=== PATIENT | male | born 1980 | race Hispanic/Latino ===

== ENCOUNTER 2018-05-12 17:47 | Inpatient (IN) | payer OTHER ==
[2018-05-12] MEDS ORDERED: Sodium Chloride 0.9% 1,000 ML IV STA (18:12)
--- NOTE | 2018-05-12 18:14 | ED PDOC ---
HPI: Chest Pain Time Seen by Provider: 05/12/18 18:02 Chief Complaint (Nursing): Chest Pain Chief Complaint (Provider): Chest Pain, SOB History Per: Patient History/Exam Limitations: no limitations Onset/Duration Of Symptoms: Days (x2) Current Symptoms Are (Timing): Still Present Additional Complaint(s): 38 year old male with pmhx of factor five leiden disorder presents to the ED for evaluation of chest pain extending from his left ribs to left shoulder associated with shortness of breath upon deep inhalation and occasional light headedness for the past two days. Patient reports he took some Aleve initially, but it only provided transient relief. He notes he wsa also taking his prescribed Otezla for his psoriasis / psoriatic arthritis, but stopped because he feared the symptoms may have been side effects. Additionally, patient states six months ago he injured his left knee and subsequently re-injured it yesterday after falling on it. He notes waking up thi s morning and with his chest pain symptoms, was also having some pain and swelling to the knee, prompting his ED visit. Otherwise, patient denies nausea, vomiting, diarrhea, fever, chills, numbness, and weakness. PMD: Dave Khan Past Medical History Reviewed: Historical Data, Nursing Documentation, Vital Signs Vital Signs: Last Vital Signs Temp 99 F 05/12/18 18:11 Pulse 93 H 05/12/18 18:11 Resp 19 05/12/18 18:11 BP 121/77 05/12/18 18:11 Pulse Ox 98 05/12/18 18:11 - Medical History PMH: Arthritis (psoriatic) Other PMH: psoriasis; factor five leiden disorder - Surgical History Surgical History: No Surg Hx - Family History Family History: States: Other Other Family History: factor five leiden (father) - Social History Current smoker - smoking cessation education provided: Yes (e-cig; quit regular cigarettes x8 mo. ago ) - Allergies Allergies/Adverse Reactions: Allergies Allergy/AdvReac Type Severity Reaction Status Date / Time No Known Allergies Allergy Verified 05/12/18 17:53 Review of Systems ROS Statement: Except As Marked, All Systems Reviewed And Found Negative Constitutional: Negative for: Fever, Chills Cardiovascular: Positive for: Chest Pain (left sided ranging from ribs to shoulder), Light Headedness (occasionally) Respiratory: Positive for: Shortness of Breath (with deep inhalation) Gastrointestinal: Negative for: Nausea, Vomiting, Diarrhea Musculoskeletal: Positive for: Leg Pain (left knee with swelling) Neurological: Negative for: Weakness, Numbness Physical Exam - Reviewed Nursing Documentation Reviewed: Yes Vital Signs Reviewed: Yes - Physical Exam Appears: Positive for: Uncomfortable Head Exam: Positive for: ATRAUMATIC, NORMOCEPHALIC Skin: Positive for: Normal Color, Warm Eye Exam: Positive for: Normal appearance ENT: Positive for: Normal ENT Inspection Neck: Positive for: Normal, Painless ROM, Supple Cardiovascular/Chest: Positive for: Regular Rate, Rhythm, Chest Non Tender (to palpation) Respiratory: Positive for: Normal Breath Sounds. Negative for: Accessory Muscle Use, Respiratory Distress Pulses-Dorsalis Pedis (L): 2+ Pulses-Dorsalis Pedis (R): 2+ Gastrointestinal/Abdominal: Positive for: Normal Exam, Soft. Negative for: Tenderness Extremity: Positive for: Normal ROM (full ROM actively bilateral lower extremities), Swelling (mild to left anterior knee without ecchymosis or erythema; no swelling, ecchymosis, or erythema noted to right knee) Neurologic/Psych: Positive for: Alert, Oriented (x3). Negative for: Motor/Sensory Deficits - Laboratory Results Result Diagrams: 05/12/18 18:44 05/12/18 18:44 Lab Results: no acute - ECG ECG: Positive for: Interpreted By Me, Viewed By Me ECG Rhythm: Positive for: Sinus Rhythm, Nonspecific Changes O2 Sat by Pulse Oximetry: 98 (RA) Pulse Ox Interpretation: Normal - Radiology X-Ray: Interpreted by Me, Viewed By Me X-Ray Interpretation: No Acute Disease - CT Scan/US ct Other Rad Studies (CT/US): Read By Radiologist Other Rad Interpretation: pe - Progress ED Course And Treament: 1939: Stable. Pending ct. 2046: Stable. AAOx3. Pain controlled. Hematology paged and hospitalist. 2049: Spoke with Dr. Alvarenga. Will admit ICU. 2123: Spoke with Dr. Alvarenga about thrombolytics vs. lovenox. Considering no elevation in trop or probnp, not saddle embolis, vitals maintained well, and in no distress, will do lovenox. Stable. AAOx3. Pain free. 2129: Spoke with Dr. Marlon Luke. Agrees with current care. Lovenox and no thro mbolytics. CT: IMPRESSION: 1. Bilateral PE as described above; more extensive on the left. 2. The estimated RV/LV ratio equals 1.2. This indicates significant right ventricular strain. 3. Small focal patchy consolidation in the inferior left lingual, pneumonia versus pulmonary infarct. 4. A small left pleural effusion is present - Critical Care Total Time (In Min): 30 Documented Critical Care: Time excludes all time spent performint seperately billable procedures Medical Decision Making Medical Decision Making: Time: 1811 Initial Impression: chest pain Initial Plan: --CT angio chest --EKG --BNP --CMP --Trop I --CBC with differential --PT / PTT --CXR portable --Left knee XR --Normal saline IV Scribe Attestation: Documented by Elizabeth Childress, acting as a scribe for Tyrell Hernandes MD. Provider Scribe Attestation: All medical record entries made by the Scribe were at my direction and personally dictated by me. I have reviewed the chart and agree that the record accurately reflects my personal performance of the history, physical exam, medical decision making, and the department course for this patient. I have also personally directed, reviewed, and agree with the discharge instructions and disposition. Disposition - Clinical Impression Clinical Impression: Chest pain, Pulmonary embolism - Patient ED Disposition Is Patient to be Admitted: Yes Counseled Patient/Family Regarding: Studies Performed, Diagnosis - Disposition Disposition Time: 20:31 Condition: FAIR - Pt Status Changed To: Hospital Disposition Of: Inpatient - Admit Certification Admit to Inpatient:: After my assessment, the patient will require hospitalization for at least two midnights. This is because of the severity of symptoms shown, intensity of services needed, and/or the medical risk in this patient being treated as an outpatient. - POA Present On Arrival: Deep Vein Thrombosis / PE
[2018-05-12 18:48] LABS: BASO # 0.1 K/uL (0.0-0.2); BASO % 0.8 % (0.0-2.0); EOS # 0.1 K/uL (0.0-0.7); EOS % 1.6 % (0.0-4.0); HEMOGLOBIN 13.3 g/dL (12.0-18.0); LYMPH # 2.2 K/uL (1.0-4.3); LYMPH % 28.5 % (20.0-40.0); MEAN CELL VOLUME 80.4 fl (80.0-94.0); MEAN CORPUSCULAR HEMOGLOBIN 27.6 pg (27.0-31.0); MEAN CORPUSCULAR HGB CONC 34.3 g/dL (33.0-37.0); MEAN PLATELET VOLUME 6.9 fl (7.2-11.7); MONO # 0.6 K/uL (0.0-0.8); MONO % 7.3 % (0.0-10.0); NEUT # 4.8 K/uL (1.8-7.0); NEUT % 61.8 % (50.0-75.0); NRBC % 0.1 % (0.0-0.0); RBC 4.81 Mil/uL (4.40-5.90); RED CELL DISTRIBUTION WIDTH 13.2 % (11.5-14.5); WHITE BLOOD COUNT 7.7 K/uL (4.8-10.8)
[2018-05-12 18:56] LABS: INR 1.1; PROTHROMBIN TIME 12.4 Seconds (9.8-13.1)
[2018-05-12 18:58] LABS: ALB/GLOB RATIO 1.1 (1.0-2.1); ALBUMIN 3.9 g/dL (3.5-5.0); ALT/SGPT 21 U/L (21-72); AST/SGOT 21 U/L (17-59); BLOOD UREA NITROGEN 18 mg/dl (9-20); CALCIUM 8.9 mg/dL (8.4-10.2); GFR NON-AFRICAN AMERICAN > 60
[2018-05-12 18:59] LABS: PARTIAL THROMBOPLASTIN TIME 33.4 Seconds (25.6-37.1)
[2018-05-12] MEDS ORDERED: Iodixanol 320 MG/ML 100 ML BOTTLE IV ONE (19:03)
[2018-05-12] MEDS ORDERED: Sodium Chloride 0.9% 50 ML IV ONE (19:03)
[2018-05-12 19:10] LABS: B-TYPE NATRIURETIC PEPTIDE 94.3 pg/ml (0-450)
[2018-05-12] MEDS: Enoxaparin 120 mg Syringe SC SCH (22:06)
--- NOTE | 2018-05-12 22:12 | CP.PCM.HP ---
<Fany Sheridan - Last Filed: 05/12/18 22:59> History of Present Illness - History of Present Illness History of Present Illness: Pt is a 38 y/o male with hx of Factor V Leiden disorder, Psoriatic Arthritis, Chronic knee and back pain presents to ED with complaints of chest pain and shortness of breath since Sunday. States he was advised by Telemedicine to report to ED today prompting his visit. Describes chest pain as intermittent, sharp, worsened with deep inspiration, localized to sternum with radiation to his left arm, and unrelieved with Aleve. He denies any cough, fever/chills, LE swelling (but + Knee effusion, chronic), calf pain, palpitations, or syncopal episodes. States he has been ambulating daily but can be sedentary occasional for his job. ROS: Left knee pain from injury 6 months ago associated with swelling, BL 2nd digit toe pain PMD: Dr. Erin Acosta [employer] Ax Consultant: Dr. Houston PMHX : Factor V Leiden mutation (partially positive, pt states 2/4 testing was abnormal?) Psoriatic Arthritis, Chronic knee and back pain, Denies hx of clots PSurgHx: Appendectomy NKDA PFamHx: Father with hypercoagulability, possible Factor V Leiden deficiency Social: Former cigarette smoker, quit 9 months ago, currently smokes E- cigarrettes (w/ nicotine), rarely drinks alcohol, denies illicit drug use. Present on Admission - Present on Admission Any Indicators Present on Admission: No Past Patient History - Past Social History Smoking Status: Never Smoked - INTEGUMENTARY Hx Psoriasis: Yes - MUSCULOSKELETAL/RHEUMATOLOGICAL Hx Arthritis: Yes (psoriatic) - PSYCHIATRIC Hx Substance Use: No - SURGICAL HISTORY Hx Surgeries: No - ANESTHESIA Hx Anesthesia: No Meds Allergies/Adverse Reactions: Allergies Allergy/AdvReac Type Severity Reaction Status Date / Time No Known Allergies Allergy Verified 05/12/18 17:53 Physical Exam - Constitutional Appears: No Acute Distress - Head Exam Head Exam: NORMAL INSPECTION - Eye Exam Eye Exam: Normal appearance - ENT Exam ENT Exam: Mucous Membranes Moist - Neck Exam Neck exam: Positive for: Full Rom - Respiratory Exam Respiratory Exam: Clear to Auscultation Bilateral. absent: Accessory Muscle Use, Rales, Rhonchi, Wheezes - Cardiovascular Exam Cardiovascular Exam: REGULAR RHYTHM, +S1, +S2 - GI/Abdominal Exam GI & Abdominal Exam: Normal Bowel Sounds, Soft. absent: Tenderness - Extremities Exam Extremities exam: Positive for: joint swelling (Left Knee, no redness, warmth or tenderness), normal capillary refill, pedal pulses present. Negative for: calf tenderness, pedal edema, tenderness - Neurological Exam Neurological exam: Alert, Oriented x3 - Psychiatric Exam Psychiatric exam: Normal Affect - Skin Additional comments: Scattered erythematous patches with silvery scales over LE BL and a few in UE. No ulcers/wounds Results - Vital Signs Recent Vital Signs: Last Vital Signs Temp 98.6 F 05/12/18 21:53 Pulse 84 05/12/18 21:53 Resp 18 05/12/18 21:53 BP 126/79 05/12/18 21:53 Pulse Ox 98 05/12/18 21:31 - Labs Result Diagrams: 05/12/18 18:44 05/12/18 18:44 Labs: Laboratory Results - last 24 hr 05/12/18 05/12/18 05/12/18 18:44 18:44 18:44 WBC 7.7 RBC 4.81 Hgb 13.3 Hct 38.7 MCV 80.4 MCH 27.6 MCHC 34.3 RDW 13.2 Plt Count 254 MPV 6.9 L Neut % (Auto) 61.8 Lymph % (Auto) 28.5 [place] % (Auto) 7.3 Eos % (Auto) 1.6 Baso % (Auto) 0.8 Neut # (Auto) 4.8 Lymph # (Auto) 2.2 [place] # (Auto) 0.6 Eos # (Auto) 0.1 Baso # (Auto) 0.1 PT 12.4 INR 1.1 APTT 33.4 Sodium 140 Potassium 3.8 Chloride 101 Carbon Dioxide 28 Anion Gap 15 BUN 18 Creatinine 1.2 Est GFR ( Amer) > 60 Est GFR (Non-Af Amer) > 60 Random Glucose 99 Calcium 8.9 Total Bilirubin 0.4 AST 21 ALT 21 Alkaline Phosphatase 93 Troponin I < 0.0120 NT-Pro-B Natriuret Pep 94.3 Total Protein 7.3 Albumin 3.9 Globulin 3.4 Albumin/Globulin Ratio 1.1 Assessment & Plan - Assessment and Plan (Free Text) Assessment: Pt is a 38 y/o male with hx of Factor V Leiden disorder, Psoriatic Arthritis, C hronic knee and back pain presents to ED with complaints of chest pain and SOB, found to have Bilateral PE on Chest CT Angio. ED Course: CBC wnl CMP wnl Troponin x1 negative EKG: Q waves in lead III, no ST changes, no R axis deviation Chest Xray: Mild wedge shaped consolidation RL lung border, small left pleural effusion on my read (final report pending) CT Chest angio: Bilateral PE, more extensive on Left. RV/LV ratio 1.2, indicating Right ventricular strain, Small patchy consolidation in left lingual- pnu vs pulmonary infarct, small left pleural effusion #Bilateral PE - Hemodynamically stable, O2 sat 99 on rm air - Likely as sequele of underlying hypercoagulability (Favor V leiden mutation) - Therapeutic Lovenox, 1mg/kg, 120mg SC q12 - PTT 6 hours post Lovenox bolus - Tylenol prn for pain - Hematology Consult, Dr. Luke, called in ED. - BL LE Venous duplex - Cardiac monitoring in ICU overnight #Left knee swelling -Chronic 6months, post trauma vs rheumatoid disease -Low suspicion for septic knee as it is not red, warm, or tender -F/U Xray final read #Psoriatic Arthritis -Pt states he stopped taking his medication Sunday since he felt bad -Will continue home medication #GI ppx -Pepcid 20mg po BID #Diet -Regular Full Code Discussed case with Dr. Alvarenga <Sergey Alvarenga - Last Filed: 05/13/18 07:14> Results - Vital Signs Recent Vital Signs: Last Vital Signs Temp 98.9 F 05/13/18 04:00 Pulse 60 05/13/18 06:00 Resp 19 05/13/18 06:00 BP 108/78 05/13/18 06:00 Pulse Ox 98 05/13/18 06:00 - Labs Result Diagrams: 05/12/18 18:44 05/12/18 18:44 Labs: Laboratory Results - last 24 hr 05/12/18 05/12/18 05/12/18 18:44 18:44 18:44 WBC 7.7 RBC 4.81 Hgb 13.3 Hct 38.7 MCV 80.4 MCH 27.6 MCHC 34.3 RDW 13.2 Plt Count 254 MPV 6.9 L Neut % (Auto) 61.8 Lymph % (Auto) 28.5 [place] % (Auto) 7.3 Eos % (Auto) 1.6 Baso % (Auto) 0.8 Neut # (Auto) 4.8 Lymph # (Auto) 2.2 [place] # (Auto) 0.6 Eos # (Auto) 0.1 Baso # (Auto) 0.1 PT 12.4 INR 1.1 APTT 33.4 Sodium 140 Potassium 3.8 Chloride 101 Carbon Dioxide 28 Anion Gap 15 BUN 18 Creatinine 1.2 Est GFR ( Amer) > 60 Est GFR (Non-Af Amer) > 60 Random Glucose 99 Calcium 8.9 Total Bilirubin 0.4 AST 21 ALT 21 Alkaline Phosphatase 93 Troponin I < 0.0120 NT-Pro-B Natriuret Pep 94.3 Total Protein 7.3 Albumin 3.9 Globulin 3.4 Albumin/Globulin Ratio 1.1 05/13/18 04:40 WBC RBC Hgb Hct MCV MCH MCHC RDW Plt Count MPV Neut % (Auto) Lymph % (Auto) [place] % (Auto) Eos % (Auto) Baso % (Auto) Neut # (Auto) Lymph # (Auto) [place] # (Auto) Eos # (Auto) Baso # (Auto) PT INR APTT 40.0 H Sodium Potassium Chloride Carbon Dioxide Anion Gap BUN Creatinine Est GFR ( Amer) Est GFR (Non-Af Amer) Random Glucose Calcium Total Bilirubin AST ALT Alkaline Phosphatase Troponin I NT-Pro-B Natriuret Pep Total Protein Albumin Globulin Albumin/Globulin Ratio Attending/Attestation - Attestation I have personally seen and examined this patient.: Yes I have fully participated in the care of the patient.: Yes I have reviewed all pertinent clinical information: Yes Notes (Text): 05/13/18 06:54 I saw, examined and discussed this patient with Dr Sheridan. I agree with the assessment and plan outlined. this 38 years old male with left side chest pain and hx of factor V Leiden in his father and himself. CTA Chest showed Bilateral Pulmonary Embolism with small patchy consolidation in the inferior left lingula pulmonary infarct. Treat with Lovenox and consult Hematology. Follow ECHO Julian MARTEL
[2018-05-12] MEDS ORDERED: Oxycodone/Acetaminophen 5/325 mg Tab PO PRN (23:12)
[2018-05-13] MEDS ORDERED: Pneumococcal 23-Valent Vaccine IM ONE (07:32)
[2018-05-13] MEDS: Enoxaparin 120 mg Syringe SC SCH ×2 (08:30→21:19)
[2018-05-13] MEDS ORDERED: Pantoprazole 40 mg Susp UD NG SCH (09:00)
--- NOTE | 2018-05-13 09:13 | CARD ---
APPROVED REPORT Date of service: 05/12/2018 EKG Measurement Heart [id number] <Conclusion> Normal sinus rhythm Normal ECG
--- NOTE | 2018-05-13 10:59 | RAD ---
Date of service: 05/12/2018 PROCEDURE: Left Knee Radiographs. HISTORY: Pain. COMPARISON: None. FINDINGS: BONES: No acute fracture or destructive bony lesion identified. JOINTS: Normal. No osteoarthritis. JOINT EFFUSION: Mild suprapatellar bursa effusion noted. OTHER FINDINGS: None. IMPRESSION: No acute fracture or dislocation left knee. Mild suprapatellar bursa effusion noted.
--- NOTE | 2018-05-13 11:00 | RAD ---
Date of service: 05/12/2018 HISTORY: dyspnea COMPARISON: No prior. FINDINGS: LUNGS: No active pulmonary disease. PLEURA: No significant pleural effusion identified, no pneumothorax apparent. CARDIOVASCULAR: No aortic atherosclerotic calcification present. Normal cardiac size. No pulmonary vascular congestion. OSSEOUS STRUCTURES: No significant abnormalities. VISUALIZED UPPER ABDOMEN: Normal. OTHER FINDINGS: None. IMPRESSION: No active disease.
--- NOTE | 2018-05-13 11:55 | CT ---
Date of service: 05/12/2018 PROCEDURE: CT Chest with contrast (Pulmonary Angiogram) HISTORY: chest pain COMPARISON: None available. TECHNIQUE: Axial computed tomography images were obtained of the chest in the pulmonary arterial phase of enhancement. Coronal and sagittal reformatted images were created and reviewed. Intravenous contrast dose: 95 cc Visipaque 320. Mean Hounsfield value in the main pulmonary artery: 204.52 Radiation dose: Total exam DLP = 376.09 mGy-cm. This CT exam was performed using one or more of the following dose reduction techniques: Automated exposure control, adjustment of the mA and/or kV according to patient size, and/or use of iterative reconstruction technique. FINDINGS: PULMONARY ARTERIES: Thrombus in the lingular and lower lobe branches of the left lung. Additional thrombus noted in multiple segments of the right lower lobe. No evidence of more proximal or saddle emboli identified. AORTA: No acute findings. No thoracic aortic aneurysm. No atherosclerotic calcification or mural plaque present. LUNGS: Subsegmental infiltrate in the lingula. Based on distribution pulmonary emboli, this may represent small area infarction. PLEURAL SPACES: Trace right pleural effusion. HEART: Straightening/flattening of the interventricular septum may reflect a component of right ventricular strain. No cardiomegaly. No significant pericardial effusion. LYMPH NODES: No lymphadenopathy. BONES, CHEST WALL: Unremarkable. No fracture or destructive lesion OTHER FINDINGS: Unremarkable. IMPRESSION: Bilateral lower lobe and lingular pulmonary emboli. Thrombus burden greater in the left lung than right. Flattening of the interventricular septum may reflect a component of right heart strain. Concordant results (preliminary interpretation) provided by Earnest. Procedure Completed: 19:31. Preliminary Report: Interpreted and electronically signed: 20:30. Final Interpretation: 11:52. May 13, 2018
--- NOTE | 2018-05-13 12:41 | CP.PCM.PN ---
Subjective - Date & Time of Evaluation Date of Evaluation: 05/13/18 Time of Evaluation: 12:27 - Subjective Subjective: This is a 38 yrs old male who was dmitted with left sided chest pain,with radiation to the left arm. He was brought to the ER where a cardiac event was ruled out. His father has had thromboembolic events and was found to have factor V leiden gene mutation. The patient was also found to be positive for the same. He had a CT chest done, and was found to have bilateral PE, one in the right lung upper lobe and one in the left lung lower lobe. He has had this off and on for the past year, but did not go to a hospital or a doctor. 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 The venous doppler in the lower extremities and echocardiogram are done but not resulted yet. Pt was a smoker until 9 months ago, but now uses electronic cigarettes. Rarely drinks and no h/o drug abuse. Objective - Vital Signs/Intake and Output Vital Signs (last 24 hours): Temp Pulse Resp BP Pulse Ox 98.4 F 56 L 15 110/80 98 05/13/18 12:00 05/13/18 12:00 05/13/18 12:00 05/13/18 08:00 05/13/18 12:00 Intake and Output: 05/13/18 05/13/18 06:59 18:59 Intake Total 120 Balance 120 - Medications Medications: Current Medications Acetaminophen (Tylenol 325mg Tab) 650 mg PO Q6H PRN PRN Reason: Pain, Mild (1-3) Last Admin: 05/12/18 23:06 Dose: 650 mg Enoxaparin Sodium (Lovenox) 120 mg 1 mg/kg (120 mg) SC Q12H NILS; Protocol Last Admin: 05/13/18 08:30 Dose: 120 mg Famotidine (Pepcid) 20 mg PO BID NILS Last Admin: 05/13/18 08:26 Dose: 20 mg Oxycodone/Acetaminophen (Percocet 5/325 Mg Tab) 1 tab PO Q4 PRN PRN Reason: Pain, moderate (4-7) Stop: 05/15/18 23:13 Last Admin: 05/13/18 08:23 Dose: 1 tab - Labs Labs: 05/12/18 18:44 05/12/18 18:44 PT 12.4 Seconds (9.8-13.1) 05/12/18 18:44 INR 1.1 05/12/18 18:44 APTT 42.5 Seconds (25.6-37.1) H 05/13/18 11:50 - Additional Findings Additional findings: Physical exam; alert,well oriented in no acute distress. Neck; supple, no adenopathy Chest; clear, no rales or rhonchi Heart; RSR, no murmur Abd; Soft,no mass, no h/s megaly Assessment and Plan - Assessment and Plan (Free Text) Assessment: Impression; Bilateral pulmonary emboli Positive for factor V mutation Plan: Plan; will continue the lovenox until he is ready to go home, then switch him to elequis.
--- NOTE | 2018-05-13 13:40 | US ---
Date of service: 05/13/2018 PROCEDURE: Bilateral lower extremity venous duplex Doppler. HISTORY: Rule out DVT COMPARISON: None available. TECHNIQUE: Bilateral common femoral, superficial femoral, popliteal and posterior tibial veins were evaluated. Flow was assessed with color Doppler, compressibility, assessment of phasic flow and augmentation response. FINDINGS: COMMON FEMORAL VEIN: Right CFV: Unremarkable. Left CFV: Unremarkable. SUPERFICIAL FEMORAL VEIN: Right SFV: Unremarkable. Left SFV: Unremarkable. POPLITEAL VEIN: Right Popliteal: Unremarkable. Left Popliteal: Unremarkable. POSTERIOR TIBIAL VEIN: Right PTV: Unremarkable. Left PTV: Unremarkable. OTHER FINDINGS: None. IMPRESSION: No evidence of deep venous thrombosis.
--- NOTE | 2018-05-13 13:56 | CP.PCM.PN ---
<Collin Vasquez - Last Filed: 05/13/18 13:54> Subjective - Date & Time of Evaluation Date of Evaluation: 05/13/18 Time of Evaluation: 10:05 - Subjective Subjective: 38 y/o M was seen and examined by bedside. Pt reports feeling OK, chest pain has improved and denies SOB or palpitations. Pt afebrile and tolerating PO. Objective - Vital Signs/Intake and Output Vital Signs (last 24 hours): Temp Pulse Resp BP Pulse Ox 98.4 F 56 L 15 110/80 98 05/13/18 12:00 05/13/18 12:00 05/13/18 12:00 05/13/18 08:00 05/13/18 12:00 Intake and Output: 05/13/18 05/13/18 06:59 18:59 Intake Total 120 Balance 120 - Medications Medications: Current Medications Acetaminophen (Tylenol 325mg Tab) 650 mg PO Q6H PRN PRN Reason: Pain, Mild (1-3) Last Admin: 05/12/18 23:06 Dose: 650 mg Enoxaparin Sodium (Lovenox) 120 mg 1 mg/kg (120 mg) SC Q12H NILS; Protocol Last Admin: 05/13/18 08:30 Dose: 120 mg Famotidine (Pepcid) 20 mg PO BID NILS Last Admin: 05/13/18 08:26 Dose: 20 mg Oxycodone/Acetaminophen (Percocet 5/325 Mg Tab) 1 tab PO Q4 PRN PRN Reason: Pain, moderate (4-7) Stop: 05/15/18 23:13 Last Admin: 05/13/18 08:23 Dose: 1 tab - Labs Labs: 05/12/18 18:44 05/12/18 18:44 PT 12.4 Seconds (9.8-13.1) 05/12/18 18:44 INR 1.1 05/12/18 18:44 APTT 42.5 Seconds (25.6-37.1) H 05/13/18 11:50 - Constitutional Appears: Well, No Acute Distress - Head Exam Head Exam: NORMAL INSPECTION - Eye Exam Eye Exam: EOMI, Normal appearance - ENT Exam ENT Exam: Mucous Membranes Moist - Neck Exam Neck Exam: Full ROM, Normal Inspection. absent: Meningismus - Respiratory Exam Respiratory Exam: NORMAL BREATHING PATTERN. absent: Rales, Rhonchi, Wheezes - Cardiovascular Exam Cardiovascular Exam: Bradycardia, REGULAR RHYTHM, +S1, +S2 - GI/Abdominal Exam GI & Abdominal Exam: Soft. absent: Guarding, Rigid, Tenderness - Extremities Exam Extremities Exam: Full ROM. absent: Calf Tenderness, Pedal Edema - Neurological Exam Neurological Exam: Alert, Awake, Oriented x3 Assessment and Plan - Assessment and Plan (Free Text) Assessment: 38 y/o M with a PMHx of Factor V Leiden disorder and Psoriatic Arthritis, Chronic knee and back pain admitted for evaluation and management of bilateral pulmonary emboli. --CT Chest angio: Bilateral lower lobe and lingular PE. Thrombus burden grater in L than R lung. ?Right ventricular strain. --B/L LE Venous duplex: No evidence of DVT. PLAN: >Bilateral PE, - Hemodynamically stable, O2 sat 99 on rm air - C/w Therapeutic Lovenox, 1mg/kg, 120mg SC q12 - B/L LE Venous duplex: No evidence of DVT. - Hematology on board, Dr Marlon Luke. - C/w Cardiac monitoring. - F/U Echocardiography results. - Plan is to discharge pt on Eliquis. >History of Factor V Leiden - Hematology on board, Dr Marlon Luke. - Likely to need lifelong anticoagulation. >Left knee swelling - Chronic, post trauma vs rheumatoid disease - X-ray: mild supra-patellar effusion - Likely due >Psoriatic Arthritis - Did not take his medications since Sunday. - Will continue home medication >Diet - Regular Case discussed with Dr Tyrese Vasquez PGY-2 <Tania Xiong - Last Filed: 05/13/18 15:17> Objective - Vital Signs/Intake and Output Vital Signs (last 24 hours): Temp Pulse Resp BP Pulse Ox 98.4 F 62 19 138/96 H 97 05/13/18 12:00 05/13/18 14:00 05/13/18 14:00 05/13/18 14:00 05/13/18 14:00 Intake and Output: 05/13/18 05/13/18 06:59 18:59 Intake Total 120 Balance 120 - Medications Medications: Current Medications Acetaminophen (Tylenol 325mg Tab) 650 mg PO Q6H PRN PRN Reason: Pain, Mild (1-3) Last Admin: 05/12/18 23:06 Dose: 650 mg Enoxaparin Sodium (Lovenox) 120 mg 1 mg/kg (120 mg) SC Q12H NILS; Protocol Last Admin: 05/13/18 08:30 Dose: 120 mg Famotidine (Pepcid) 20 mg PO BID NILS Last Admin: 05/13/18 08:26 Dose: 20 mg Oxycodone/Acetaminophen (Percocet 5/325 Mg Tab) 1 tab PO Q4 PRN PRN Reason: Pain, moderate (4-7) Stop: 05/15/18 23:13 Last Admin: 05/13/18 08:23 Dose: 1 tab - Labs Labs: 05/12/18 18:44 05/12/18 18:44 PT 12.4 Seconds (9.8-13.1) 05/12/18 18:44 INR 1.1 05/12/18 18:44 APTT 42.5 Seconds (25.6-37.1) H 05/13/18 11:50 Attending/Attestation - Attestation I have personally seen and examined this patient.: Yes I have fully participated in the care of the patient.: Yes I have reviewed all pertinent clinical information, including history, physical exam and plan: Yes Notes (Text): Bilateral Pulmonary Embolism Hx of Factor V Leiden Psoriasis CT of Chest: Bilateral lower lobe and lingular pulmonary emboli. Thrombus burden greater in the left lung than right. Flattening of the interventricular septum may reflect a component of right heart strain. - cont Lovenox 1 mg/kg q 12 - ECHO -Hematology consulted- discussed with Dr Nima Luke - because pt has bilateral PE , she recommends to keep pt for 1 more night for monitoring - may be d/c home on PO Eliquis if pt remains stable - cont home meds
[2018-05-13] MEDS ORDERED: APREMILAST 30 MG PO SCH (17:00)
[2018-05-13] MEDS ORDERED: AMPHETAMINE SALT COMBINATION 5 MG TAB PO SCH (17:25)
--- NOTE | 2018-05-13 17:56 | CARD ---
APPROVED REPORT Date of service: 05/13/2018 EXAM: Two-dimensional and M-mode echocardiogram with Doppler and color Doppler. Other Information Quality : GoodRhythm : NSR INDICATION Pulmonary Embolism 2D DIMENSIONS IVSd1.67 (0.7-1.1cm)LVDd3.69 (3.9-5.9cm) LVOT Diameter2.24 (1.8-2.4cm)PWd1.32 (0.7-1.1cm) IVSs1.82 (0.8-1.2cm)LVDs2.72 (2.5-4.0cm) FS (%) 26.2 %PWs1.73 (0.8-1.2cm) M-Mode DIMENSIONS Left Atrium (MM)3.26 (2.5-4.0cm)IVSd1.06 (0.7-1.1cm) Aortic Root3.91 (2.2-3.7cm)LVDd5.76 (4.0-5.6cm) Aortic Cusp Exc.2.41 (1.5-2.0cm)PWd1.15 (0.7-1.1cm) IVSs1.76 cmFS (%) 34 % LVDs3.82 (2.0-3.8cm)PWs1.56 cm Aortic Valve AoV Peak Uamonajl18.1cm/sAoV VTI21.7cmAO Peak GR.4mmHg LVOT Peak Eglbogdu37.0cm/sLVOT VTI16.23cmAO Mean GR.3mmHg JAVIER (VMAX)1.15pw0ZTQ (VTI)1.18cm2 Mitral Valve MV E Dvhaxppg43.5cm/sMV DECEL HFMW959ycDV A Ektjqwap86.8cm/s MV CPO39caC/A ratio1.4MVA (PHT)4.07cm2 TDI Lateral E' Peak V12.55cm/sMedial E' Peak V10.92cm/sE/Lateral E'5.5 E/Medial E'6.4 LEFT VENTRICLE The left ventricle is normal size. There is mild concentric left ventricular hypertrophy. The left ventricular systolic function is normal. The estimated ejection fraction is 60-65% No regional wall motion abnormalities noted.. The left ventricular diastolic function is normal. No left ventricle thrombus noted on this study. There is no ventricular septal defect visualized. There is no left ventricular aneurysm. There is no mass noted in the left ventricle. RIGHT VENTRICLE The right ventricle is normal size. There is normal right ventricular wall thickness. The right ventricular systolic function is normal. ATRIA The left atrium size is normal. The right atrium size is normal. The interatrial septum is intact with no evidence for an atrial septal defect. AORTIC VALVE The aortic valve is normal in structure. No aortic regurgitation is present. There is no aortic valvular stenosis. There is no aortic valvular vegetation. MITRAL VALVE The mitral valve is normal in structure. There is no evidence of mitral valve prolapse. There is no mitral valve stenosis. There is no mitral valve regurgitation noted. TRICUSPID VALVE The tricuspid valve is normal in structure. There is no tricuspid valve regurgitation noted. There is no tricuspid valve prolapse or vegetation. There is no tricuspid valve stenosis. PULMONIC VALVE The pulmonary valve is normal in structure. There is no pulmonic valvular regurgitation. There is no pulmonic valvular stenosis. GREAT VESSELS The aortic root is normal in size. The ascending aorta is normal in size. The pulmonary artery is normal. The IVC is dilated in size and collapses >50% with inspiration. PERICARDIAL EFFUSION There is no pericardial effusion. There is no pleural effusion. <Conclusion> There is mild concentric left ventricular hypertrophy. The estimated ejection fraction is 60-65% The left ventricular diastolic function is normal. The right ventricular systolic function is normal. The left atrium size is normal. There is no tricuspid valve regurgitation noted. The IVC is dilated in size and collapses >50% with inspiration.
[2018-05-14 05:41] LABS: MEAN CELL VOLUME 80.8 fl (80.0-94.0); MEAN CORPUSCULAR HEMOGLOBIN 27.2 pg (27.0-31.0); MEAN CORPUSCULAR HGB CONC 33.7 g/dL (33.0-37.0); RBC 4.78 Mil/uL (4.40-5.90); RED CELL DISTRIBUTION WIDTH 13.2 % (11.5-14.5); WHITE BLOOD COUNT 5.8 K/uL (4.8-10.8)
[2018-05-14 05:53] LABS: BLOOD UREA NITROGEN 15 mg/dl (9-20); CALCIUM 8.3 mg/dL (8.4-10.2); GFR NON-AFRICAN AMERICAN > 60
[2018-05-14 06:09] VITALS: PULSE 54
[2018-05-14 08:19] VITALS: BP 126/86; RESP 14; TEMP 98.2; O2SAT 98
[2018-05-14] MEDS: Enoxaparin 120 mg Syringe SC SCH (08:48)
[2018-05-14] MEDS ORDERED: AMPHETAMINE SALT COMBINATION 5 MG TAB PO SCH (09:00)
[2018-05-14] MEDS ORDERED: AMPHETAMINE PO SCH (09:00)
[2018-05-14] MEDS ORDERED: DEXTROAMPHETAMINE PO SCH (09:00)
--- NOTE | 2018-05-14 14:41 | CP.PCM.DIS ---
Provider - Provider Date of Admission: 05/12/18 20:53 Attending physician: Sergey Alvarenga Primary care physician: Dr Erin Acosta Consults: 05/12/18 21:57 Hematology Oncology Consult Stat Comment: Consulting Provider: Sarahy Luke Consulting Physician: Sarahy Luke Reason for Consult: Bilteral PE; Hx of hypercoagulability Time Spent in preparation of Discharge (in minutes): 20 Hospital Course - Lab Results Lab Results: Micro Results 05/12/18 08:46 Naris MRSA Culture (Admit) - Final MRSA NOT DETECTED Most Recent Lab Values WBC 5.8 K/uL (4.8-10.8) 05/14/18 04:50 RBC 4.78 Mil/uL (4.40-5.90) 05/14/18 04:50 Hgb 13.0 g/dL (12.0-18.0) 05/14/18 04:50 Hct 38.6 % (35.0-51.0) 05/14/18 04:50 MCV 80.8 fl (80.0-94.0) 05/14/18 04:50 MCH 27.2 pg (27.0-31.0) 05/14/18 04:50 MCHC 33.7 g/dL (33.0-37.0) 05/14/18 04:50 RDW 13.2 % (11.5-14.5) 05/14/18 04:50 Plt Count 241 K/uL (130-400) 05/14/18 04:50 MPV 6.9 fl (7.2-11.7) L 05/12/18 18:44 Neut % (Auto) 61.8 % (50.0-75.0) 05/12/18 18:44 Lymph % (Auto) 28.5 % (20.0-40.0) 05/12/18 18:44 [place] % (Auto) 7.3 % (0.0-10.0) 05/12/18 18:44 Eos % (Auto) 1.6 % (0.0-4.0) 05/12/18 18:44 Baso % (Auto) 0.8 % (0.0-2.0) 05/12/18 18:44 Neut # (Auto) 4.8 K/uL (1.8-7.0) 05/12/18 18:44 Lymph # (Auto) 2.2 K/uL (1.0-4.3) 05/12/18 18:44 [place] # (Auto) 0.6 K/uL (0.0-0.8) 05/12/18 18:44 Eos # (Auto) 0.1 K/uL (0.0-0.7) 05/12/18 18:44 Baso # (Auto) 0.1 K/uL (0.0-0.2) 05/12/18 18:44 PT 12.4 Seconds (9.8-13.1) 05/12/18 18:44 INR 1.1 05/12/18 18:44 APTT 39.9 Seconds (25.6-37.1) H 05/13/18 15:55 Sodium 139 mmol/l (132-148) 05/14/18 04:50 Potassium 4.2 MMOL/L (3.6-5.0) 05/14/18 04:50 Chloride 107 mmol/L (98-107) 05/14/18 04:50 Carbon Dioxide 23 mmol/L (22-30) 05/14/18 04:50 Anion Gap 13 (10-20) 05/14/18 04:50 BUN 15 mg/dl (9-20) 05/14/18 04:50 Creatinine 0.8 mg/dl (0.8-1.5) 05/14/18 04:50 Est GFR ( Amer) > 60 05/14/18 04:50 Est GFR (Non-Af Amer) > 60 05/14/18 04:50 Random Glucose 97 mg/dL (75-110) 05/14/18 04:50 Calcium 8.3 mg/dL (8.4-10.2) L 05/14/18 04:50 Total Bilirubin 0.4 mg/dl (0.2-1.3) 05/12/18 18:44 AST 21 U/L (17-59) 05/12/18 18:44 ALT 21 U/L (21-72) 05/12/18 18:44 Alkaline Phosphatase 93 U/L (38-126) 05/12/18 18:44 Troponin I < 0.0120 ng/mL (0.00-0.120) 05/12/18 18:44 NT-Pro-B Natriuret Pep 94.3 pg/ml (0-450) 05/12/18 18:44 Total Protein 7.3 G/DL (6.3-8.2) 05/12/18 18:44 Albumin 3.9 g/dL (3.5-5.0) 05/12/18 18:44 Globulin 3.4 gm/dL (2.2-3.9) 05/12/18 18:44 Albumin/Globulin Ratio 1.1 (1.0-2.1) 05/12/18 18:44 - Hospital Course Hospital Course: 38 yrs old male with PMH Factor V leiden gene mutation presented to ER with left sided chest pain and radiation to the left arm. CTA chest showed bilateral PE, one in the right lung upper lobe and one in the left lung lower lobe. Doppler US of LE showed no DVT Echo showed normal EF and no right sided strain Hematology was consulted and he was started on Lovenox Therapeutic He was placed under observation in telemetry He remained hemodynamically stable , not tachycardic , not dyspneic RR 18 Saturating 98 % in RA , HR 54 Will discharge patient home on Eliquist 10 mg po BID for 1 week and than 5 mg po BID for life. All test results discussed with patient and all questions answered . 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 On otezla ADHD- chronic on Aderall Discharge Exam - Head Exam Head Exam: ATRAUMATIC, NORMAL INSPECTION - Eye Exam Eye Exam: EOMI, Normal appearance, PERRL Pupil Exam: NORMAL ACCOMODATION - ENT Exam ENT Exam: Mucous Membranes Moist, Normal Exam - Neck Exam Neck exam: Full Rom, Normal Inspection - Respiratory Exam Respiratory Exam: Clear to PA & Lateral, NORMAL BREATHING PATTERN. absent: Rales, Rhonchi, Wheezes - Cardiovascular Exam Cardiovascular Exam: REGULAR RHYTHM, RRR, +S1, +S2. absent: JVD - GI/Abdominal Exam GI & Abdominal Exam: Normal Bowel Sounds, Soft. absent: Distended, Guarding, Rebound, Tenderness - Rectal Exam Rectal Exam: Deferred - Extremities Exam Extremities exam: normal capillary refill, normal inspection, pedal pulses present - Back Exam Back exam: NORMAL INSPECTION - Neurological Exam Neurological exam: Alert, CN II-XII Intact, Oriented x3, Reflexes Normal - Psychiatric Exam Psychiatric exam: Normal Affect, Normal Mood - Skin Skin Exam: Dry, Intact, Normal Color, Warm Discharge Plan - Discharge Medications Prescriptions: Apixaban [Eliquis] 5 mg PO BID 30 Days tab - Follow Up Plan Condition: STABLE Disposition: HOME/ ROUTINE Patient education suggested?: Yes Referrals: Dave Khan [Medical Doctor] - Sarahy Luke MD [Staff Provider] -
== END 2018-05-14 11:03 | disposition home or self-care (01) | DRG 176 ==
LOC: H.ER 17:47 → H.ERHOLD 20:53 → H.ICU/CCU 22:40
PROVIDERS: ADMIT Internal Medicine; ATTEND Internal Medicine
DX: I26.99 Other pulmonary embolism without acute cor pulmonale (principal); D68.51 Activated protein C resistance; L40.50 Arthropathic psoriasis, unspecified; G89.29 Other chronic pain; F90.9 Attention-deficit hyperactivity disorder, unspecified type; F17.290 Nicotine dependence, other tobacco product, uncomplicated; M25.462 Effusion, left knee